=== PATIENT | male | born 1995 | race Caucasian/White ===

== ENCOUNTER 2018-04-29 03:31 | Observation (INO) | payer OTHER ==
[2018-04-29] MEDS ORDERED: METOCLOPRAMIDE HCL ORAL SOLN 10 MG/10 ML UDCUP PO ONE (03:45)
[2018-04-29] MEDS ORDERED: LIDOCAINE 2% VISCOUS SOLN 20 ML UDCUP PO ONE (03:45)
[2018-04-29] MEDS ORDERED: MAG HYDROX/AL HYDROX/SIMETH SUSP 30 ML UDCUP PO ONE (03:45)
--- NOTE | 2018-04-29 03:51 | ER Document Report ---
ED GI/ - General Chief Complaint: Abdominal Pain Stated Complaint: ABDOMINAL PAIN Time Seen by Provider: 04/29/18 03:45 Notes: The patient is a 22-year-old male, no past medical history, presents with 1 hour of upper abdominal pain, worse in his epigastrium. He has never had this pain before. He denies heavy alcohol drinking last night, spicy food, nausea, vomiting, diarrhea, constipation, fevers, chest pain or shortness of breath. TRAVEL OUTSIDE OF THE [place] IN LAST 30 DAYS: No - Related Data Allergies/Adverse Reactions: No Known Allergies Allergy (Unverified 04/29/18 04:09) Past Medical History - General Information source: Patient - Social History Smoking Status: Unknown if Ever Smoked Frequency of alcohol use: Occasional Drug Abuse: None Family History: Reviewed & Not Pertinent Review of Systems - Review of Systems Notes: REVIEW OF SYSTEMS: CONSTITUTIONAL: -fevers, -chills EENT: -eye pain, -difficulty swallowing, -nasal congestion CARDIOVASCULAR: -chest pain, -syncope. RESPIRATORY: -cough, -SOB GASTROINTESTINAL: +upper abdominal pain, -nausea, -vomiting, -diarrhea GENITOURINARY: -dysuria, -hematuria MUSCULOSKELETAL: -back pain, -neck pain SKIN: -rash or skin lesions. HEMATOLOGIC: -easy bruising or bleeding. LYMPHATIC: -swollen, enlarged glands. NEUROLOGICAL: -altered mental status or loss of consciousness, -headache, - neurologic symptoms PSYCHIATRIC: -anxiety, -depression. ALL OTHER SYSTEMS REVIEWED AND NEGATIVE. Physical Exam - Vital signs Vitals: Temp Pulse Resp BP Pulse Ox 97.6 F 63 18 141/84 H 100 04/29/18 03:36 04/29/18 03:36 04/29/18 03:36 04/29/18 03:36 04/29/18 03:36 - Notes Notes: PHYSICAL EXAMINATION: GENERAL: Uncomfortable. HEAD: Atraumatic, normocephalic. EYES: Pupils equal round and reactive to light, extraocular movements intact, sclera anicteric, conjunctiva are normal. ENT: nares patent, oropharynx clear without exudates. Moist mucous membranes. NECK: Normal range of motion, supple without lymphadenopathy LUNGS: Breath sounds clear to auscultation bilaterally and equal. No wheezes rales or rhonchi. HEART: Regular rate and rhythm without murmurs ABDOMEN: Soft, mild epigastric and moderate RUQ tenderness, normoactive bowel sounds. No guarding, no rebound. No masses appreciated. Negative Polk's sign. EXTREMITIES: Normal range of motion, no pitting or edema. No cyanosis. NEUROLOGICAL: Cranial nerves grossly intact. Normal speech, normal gait. Normal sensory and motor exams. PSYCH: Normal mood, normal affect. SKIN: Warm, Dry, normal turgor, no rashes or lesions noted. Course - Re-evaluation Re-evalutation: 04/29/18 04:07 After the GI cocktail, the patient's pain slightly improved, but then he vomited up. US shows evidence of cholelithiasis, but no evidence of cholecystitis on blood work or ultrasound. He is still very uncomfortable and in pain. Will speak to surgeon for consultation about symptomatic cholelithiasis. 04/29/18 05:22 With patient continuing to be symptomatic from his cholelithiasis , spoke to Dr. Dickinson and will keep patient NPO. - Vital Signs Vital signs: Temp Pulse Resp BP Pulse Ox 98.3 F 81 17 127/55 H 98 04/29/18 18:27 04/29/18 18:27 04/29/18 18:27 04/29/18 18:27 04/29/18 18:27 - Laboratory Result Diagrams: 04/29/18 04:00 04/29/18 04:00 Laboratory results interpreted by me: 04/29/18 04/29/18 04:00 04:00 Plt Count 144 L Sodium 145.4 H AST 14 L ALT 20 L - Diagnostic Test Radiology reviewed: Image reviewed, Reports reviewed Radiology results interpreted by me: RUQ US: 1. Cholelithiasis. No other sonographic evidence of acute cholecystitis. 2. Increased renal cortical echogenicity. This could be seen with medical renal disease. Discharge - Discharge Clinical Impression: Symptomatic cholelithiasis Condition: Stable Disposition: ADMITTED INPATIENT Admitting Provider: Surgicalist Bambi Dickinson Unit Admitted: Surgical Floor
[2018-04-29] MEDS ORDERED: ONDANSETRON 4 MG TAB.RAPDIS PO ONE (04:07)
[2018-04-29 04:29] LABS: ABSOLUTE EOSINOPHILS # (AUTO) 0.2 10^3/uL (0.0-0.6); ABSOLUTE LYMPHOCYTES (AUTO) 2.6 10^3/uL (0.5-4.7); ABSOLUTE MONOCYTES (AUTO) 0.5 10^3/uL (0.1-1.4); ABSOLUTE NEUT (AUTO) 2.7 10^3/uL (1.7-8.2); BASOPHILS % (AUTO) 0.3 % (0-2); EOSINOPHILS % (AUTO) 2.8 % (0-6); HEMATOCRIT 45.6 % (37.9-51.0); HEMOGLOBIN 15.8 g/dL (13.5-17.0); LYMPHOCYTES % (AUTO) 43.5 % (13-45); MEAN CORPUSCULAR HGB CONC 34.7 g/dL (32.0-36.0); MEAN CORPUSCULAR VOLUME 89 fl (80-97); MONOCYTES % (AUTO) 8.6 % (3-13); PLATELET COUNT 144 10^3/uL (150-450); RED CELL DISTRIBUTION WIDTH 13.3 % (11.5-14.0); SEGMENTED NEUTROPHILS % (AUTO) 44.8 % (42-78); TOTAL CELLS COUNTED % (AUTO) 100 %; WHITE BLOOD COUNT 6.1 10^3/uL (4.0-10.5)
[2018-04-29 04:37] LABS: ALANINE AMINOTRANSFERASE 20 U/L (21-72); ALBUMIN 4.1 g/dL (3.5-5.0); ALKALINE PHOSPHATASE 41 U/L (38-126); ANION GAP 12 (5-19); ASPARTATE AMINO TRANSFERASE 14 U/L (17-59); BILIRUBIN,DIRECT 0.3 mg/dL (0.0-0.4); BILIRUBIN,TOTAL 0.5 mg/dL (0.2-1.3); BLOOD UREA NITROGEN 17 mg/dL (7-20); CALCIUM 9.2 mg/dL (8.4-10.2); CARBON DIOXIDE 30 mmol/L (22-30); CHLORIDE 103 mmol/L (98-107); GLUCOSE 107 mg/dL (75-110); LIPASE 106.8 U/L (23-300); POTASSIUM 4.2 mmol/L (3.6-5.0); SODIUM 145.4 mmol/L (137-145); TOTAL PROTEIN 6.9 g/dL (6.3-8.2)
--- NOTE | 2018-04-29 05:12 | RADIOLOGY REPORT (SQ) ---
EXAM DESCRIPTION: US ABDOMEN LIMITED COMPLETED DATE/TME: 04/29/2018 03:49 CLINICAL HISTORY: RUQ tenderness COMPARISON: None. TECHNIQUE: Real-time sonographic images of the right upper abdomen were obtained using a curved multihertz transducer. FINDINGS: Pancreas: The visualized portions of the pancreas are unremarkable. Vascular: The visualized portions of the aorta and IVC are unremarkable. Liver: The liver has normal contour and echogenicity. Hepatopedal flow in the portal vein confirmed with color and spectral imaging.. The common bile duct measures 0.5 cm. Gallbladder: Mobile echogenic structures in the gallbladder lumen. Normal gallbladder wall thickness. No pericholecystic fluid. Negative reported sonographic Polk sign. Right Kidney: The right kidney measures 12.0 cm in length. No hydronephrosis, solid renal mass, or shadowing calculi. Increased cortical echogenicity. IMPRESSION: 1. Cholelithiasis. No other sonographic evidence of acute cholecystitis. 2. Increased renal cortical echogenicity. This could be seen with medical renal disease.
[2018-04-29] MEDS ORDERED: HYDROMORPHONE HCL INJ/PF 2 MG/ML AMPULE IV ONE (05:19)
[2018-04-29] MEDS ORDERED: NORMAL SALINE 1000 ML 1,000 ML IV ONE (05:42)
[2018-04-29] MEDS ORDERED: CEFAZOLIN 1 GM/D5W RTU 1 GM/50 ML RTUPB IV ONE (05:58)
--- NOTE | 2018-04-29 06:22 | PDOC H&P ---
History of Present Illness Admission Date/PCP: 04/29/18 05:54 ELENA GOMEZ DO Patient complains of: severe abdominal pains radiating to the back History of Present Illness: NEETA BUSTAMANTE is a 22 year old male who woke up at 3 am c/o severe Epigastric and RUQ pains radiating to the back associated with nausea and vomiting. Ate burgers for dinner. Went to where an ultrasound of gallbladder showed stones. Pains are partly relieved with pain meds. Past Medical History Medical History: None Past Surgical History Past Surgical History: Reports: None Social History Smoking Status: Unknown if Ever Smoked Family History Family History: Reviewed & Not Pertinent Parental Family History Reviewed: Yes Children Family History Reviewed: No Sibling(s) Family History Reviewed.: No Medication/Allergy Home Medications: Omeprazole Magnesium [Prilosec Otc] 20 mg PO Q12H #14 tablet. 04/29/18 Allergies/Adverse Reactions: No Known Allergies Allergy (Unverified 04/29/18 04:09) Review of Systems Constitutional: PRESENT: other - no fever/chills Eyes: PRESENT: other - no visual/hearing changes Respiratory: PRESENT: other - no chest pains/cough Gastrointestinal: PRESENT: abdominal pain, nausea, vomiting Genitourinary: PRESENT: other - no dysuria Neurological: PRESENT: weakness, other - no seizures Hematologic/Lymphatic: PRESENT: other - no easy bruising Physical Exam Vital Signs: Temp Pulse Resp BP Pulse Ox 97.6 F 63 18 141/84 H 100 04/29/18 03:36 04/29/18 03:36 04/29/18 03:36 04/29/18 03:36 04/29/18 03:36 General appearance: PRESENT: cooperative, mild distress, well-developed, well- nourished Head exam: PRESENT: atraumatic Eye exam: PRESENT: conjunctiva pink Mouth exam: PRESENT: moist Neck exam: PRESENT: full ROM Respiratory exam: PRESENT: clear to auscultation marlene Cardiovascular exam: PRESENT: RRR Pulses: PRESENT: normal radial pulses GI/Abdominal exam: PRESENT: Polk's sign, soft, tenderness - RUQ Rectal exam: PRESENT: deferred Extremities exam: PRESENT: full ROM Musculoskeletal exam: PRESENT: ambulatory Neurological exam: PRESENT: alert, oriented to person, oriented to place, oriented to time, oriented to situation Psychiatric exam: PRESENT: appropriate affect Skin exam: PRESENT: normal color, warm Results Impressions: Abdomen Ultrasound 04/29/18 03:49 IMPRESSION: 1. Cholelithiasis. No other sonographic evidence of acute cholecystitis. 2. Increased renal cortical echogenicity. This could be seen with medical renal disease. Assessment & Plan - Time Time Spent: 30 to 50 Minutes - Inpatient Certification Medical Necessity: Need For IV Fluids, Need for Pain Control, Need for IV Antibiotics, Need for Surgery, Risk of Complication if Not Cared For in Hospital - Plan Summary Plan Summary: Keep NPO Hydrate IV antibiotics For Lap Yolanda
[2018-04-29] MEDS ORDERED: DEXTROSE 5%-LACTATED RINGERS 1,000 ML IV PRN (07:58)
[2018-04-29] MEDS ORDERED: DEXTROSE 40% GEL 15 GM TUBE PO PRN ×2 (08:00)
[2018-04-29] MEDS ORDERED: GLUCAGON,HUMAN RECOMB 1 MG INJ SUBCUT PRN (08:00)
[2018-04-29] MEDS ORDERED: DEXTROSE 50%-WATER 25 GM/50 ML DISP.SYRIN IV PRN ×2 (08:00)
--- NOTE | 2018-04-29 08:45 | PDOC PROGRESS REPORT ---
Subjective Progress Note for:: 04/29/18 Reason For Visit: SYMPTOMATIC CHOLELITHIASIS Patient feels better after receiving pain medication. No nausea vomiting. Physical Exam Vital Signs: Temp Pulse Resp BP Pulse Ox 97.6 F 53 L 16 124/53 L 100 04/29/18 07:06 04/29/18 07:06 04/29/18 07:06 04/29/18 07:06 04/29/18 07:06 General appearance: PRESENT: no acute distress GI/Abdominal exam: PRESENT: other - Mild tenderness right upper quadrant to deep palpation Results Impressions: Abdomen Ultrasound 04/29/18 03:49 IMPRESSION: 1. Cholelithiasis. No other sonographic evidence of acute cholecystitis. 2. Increased renal cortical echogenicity. This could be seen with medical renal disease. Assessment & Plan - Diagnosis (1) Symptomatic cholelithiasis Is this a current diagnosis for this admission?: Yes Plan: The patient has been diagnosed with symptomatic, acute cholecystitis with cholelithiasis and he desires laparoscopic, possible open cholecystectomy. I discussed with the patient in the mechanics of the operation, expected outcome, and recovery timeframe. He is prepared to sign his consent form. Thus the risks benefits alternatives of the operation including leaving, infection, bile duct injury, need for additional surgery. I believe he understands and agrees to proceed.
[2018-04-29] MEDS ORDERED: CEFAZOLIN 1 GM/D5W RTU 1 GM/50 ML RTUPB IV PRN (12:29)
[2018-04-29] MEDS ORDERED: BUPIVACAINE HCL 0.25 % INJ/PF (2.5 MG/1 ML) 30 ML VIAL ONE (13:28)
[2018-04-29] MEDS ORDERED: FENTANYL CITRATE INJ/PF 250 MCG/5 ML AMPULE ONE (13:57)
[2018-04-29] MEDS ORDERED: FENTANYL CITRATE INJ/PF 100 MCG/2 ML AMPUL ONE (13:57)
[2018-04-29] MEDS ORDERED: MIDAZOLAM 2 MG/2 ML INJ ONE (13:57)
[2018-04-29] MEDS ORDERED: PROPOFOL INJ 200 MG/20 ML VIAL IV ONE (13:58)
[2018-04-29] MEDS ORDERED: MORPHINE SULFATE 10 MG/ML INJ ONE (13:58)
[2018-04-29] MEDS ORDERED: FAMOTIDINE INJ/PF 20 MG/2 ML SDV IV ONE (14:04)
[2018-04-29] MEDS ORDERED: VECURONIUM BROMIDE INJ 10 MG VIAL IV ONE (14:16)
[2018-04-29] MEDS ORDERED: NEOSTIGMINE METHYLSULFATE 10 MG/10 ML VIAL ONE (14:16)
[2018-04-29] MEDS ORDERED: SUCCINYLCHOLINE CHLORIDE INJ 200 MG/10 ML VIAL ONE (14:16)
[2018-04-29] MEDS ORDERED: GLYCOPYRROLATE INJ 0.4 MG/2 ML VIAL ONE (14:16)
[2018-04-29] MEDS ORDERED: CEFAZOLIN INJ 1 GM VIAL ONE (14:26)
[2018-04-29] MEDS ORDERED: MORPHINE SULFATE 10 MG/ML INJ IV PRN (14:43)
[2018-04-29] MEDS ORDERED: MEPERIDINE HCL/PF INJ 25 MG/1 ML DISP.SYRIN IV PRN (14:43)
[2018-04-29] MEDS ORDERED: PROMETHAZINE HCL INJ 25 MG/1 ML VIAL IV PRN (14:43)
[2018-04-29] MEDS ORDERED: DIPHENHYDRAMINE HCL 50 MG/ML VIAL IV PRN (14:43)
[2018-04-29] MEDS ORDERED: FENTANYL CITRATE INJ/PF 100 MCG/2 ML AMPUL IV PRN ×3 (14:43)
[2018-04-29] MEDS ORDERED: OXYCODONE-ACETAMINOPHEN 5-325 MG TABLET PO PRN ×2 (15:13→16:08)
--- NOTE | 2018-04-29 15:13 | Operative Report ---
Operative Report DATE OF SURGERY: 04/29/18 PREOPERATIVE DIAGNOSIS: Acute cholecystitis with cholelithiasis POSTOPERATIVE DIAGNOSIS: Same OPERATION: Laparoscopic cholecystectomy SURGEON: DELANO CAIN ANESTHESIA: GA TISSUE REMOVED OR ALTERED: 1 gallbladder with contents COMPLICATIONS: None ESTIMATED BLOOD LOSS: Scant INTRAOPERATIVE FINDINGS: See below PROCEDURE: After obtaining informed consent, the patient was taken to the operating room. General Anesthesia was induced; the arms were extended, and the abdomen was exposed, and prepped and draped in a sterile fashion. Instrumentation was set up for laparoscopic cholecystectomy. Surgical plan and surgical timeout were conducted. A vertical incision was made above the umbilicus, and a verres needle was inserted uneventfully into the peritoneal cavity. Pneumoperitoneum was established. The verres needle was removed and a 5 mm trocar was inserted and a 5 mm flexible laparoscope was inserted. Visualization of the peritoneal cavity confirmed safe uneventful entry. Under direct visualization 3 additional 5 mm ports were established, one in the subxiphoid position and second in the subcostal position. The gallbladder was aspirated of approximately 60 cc of bile using the laparoscopic trocar. Visualization of the hepatobiliary anatomy revealed no anatomic variations. A grasper was placed on the fundus of the gallbladder and the gallbladder is elevated over the right surface of the liver; a second grasper was used to grasp the infundibulum of the gallbladder. The neck of the gallbladder and junction with the cystic duct was dissected out. The Cystic artery was in its usual location medial and cephalad to the cystic duct. The cystic artery was surrounded with a right angle clamp, clipped twice proximally and divided with laparoscopic scissors. We now opened the triangle of Calot by dividing the peritoneal reflection on both the medial and lateral sides of the cystic duct infundibular junction. The critical view was obtained. We placed one clip on the cystic duct distally on the gallbladder side, open the cystic duct and evacuated multiple small gravel stones. We finally obtained clear bile coming out of the cystic duct stump so we clipped the cystic duct proximately 2 times completely divided the cystic duct. The gallbladder was now removed from the undersurface of the liver using hook cautery dissection. Graspers were repositioned and the gallbladder was removed uneventfully from the abdominal cavity through the super umbilical port site incision. There was no further spillage of any stones. The specimen was examined, then passed off to pathology for permanent analysis. We returned to the peritoneal cavity check for bleeding, and evidence of bile leak, and there was none. We Confirmed satisfactory placement of clips on cystic duct and cystic artery were secured . Residual sludge removed in a near complete fashion. At this point we felt the operation was complete. The subcutaneous tissue was then anesthetized with quarter percent Marcaine Sponge and needle counts are correct. All ports removed under direct visualization pneumoperitoneum evacuated, and 5 mm port wounds closed with 3-0 Vicryl suture, benzoin and Steri-Strips. The patient was extubated, and taken to the recovery room in stable condition.
[2018-04-29 18:22] VITALS: BP 127/55
--- NOTE | 2018-05-08 13:55 | DISCHARGE SUMMARY E ---
Discharge Summary NAME: NEETA BUSTAMANTE : 1995 AGE: 22Y ADMITTED: 04/29/2018 DISCHARGED: 04/29/2018 REASON FOR ADMISSION: ACUTE CHOLECYSTITIS. SUMMARY OF HOSPITALIZATION: The patient is a 22-year-old white male who presents to the emergency department with acute abdominal pain. Patient was admitted to the surgical service, kept NPO on IV fluids, and taken to the operating room by Dr. Will where he underwent laparoscopic cholecystectomy. He tolerated the procedure well. The following day he was felt to received maximum benefit of hospitalization and was discharged to home. FINAL DIAGNOSIS: 1. CHRONIC CHOLECYSTITIS. 2. CHOLELITHIASIS STATUS POST LAPAROSCOPIC CHOLECYSTECTOMY. DISPOSITION: Patient discharged to home in care of his family. Follow up with Dr. Will and/or medical representative for [facility] in approximately 1 to 2 weeks, resume preoperative medications, diet, and activity. DICTATING PHYSICIAN: DELANO WILL M.D. [id number] PHY#: [id number] ID: [id number] JOB#: [id number] ACCT: [id number] cc:DELANO WILL M.D. [facility],
== END 2018-04-29 19:05 | disposition home or self-care (01) ==
LOC: ER 03:31 → UNDOADMOB 05:54 → INTOOBSV 05:54 → EH 05:54 → 2N 07:20 → UNDODISOB 19:05
PROVIDERS: ATTEND Surgery
PROC: 0FT44ZZ Resection of Gallbladder, Percutaneous Endoscopic Approach (ICD-10-PCS; principal; 2018-04-29 13:30)
DX: K80.10 Calculus of gallbladder with chronic cholecystitis without obstruction (principal); R53.1 Weakness
CPT/HCPCS: 99285; 96374; 36415; 87040; 83690; 85025; 80053; 88304 ×2; 76705; 47562; G0378 ×2; J2250; J0690 ×2; S0119; J3010; J3490 ×2; J1170; J0330; J7030; J2704; S0028; 790; J2270